=== PATIENT | male | born 1945 | race Caucasian/White ===

== ENCOUNTER 2023-02-04 15:50 | Inpatient (IN) | payer OTHER, SELFPAY ==
[2023-02-04] VITALS (24 sets, daily range): BP systolic 140–169; BP diastolic 96–127; PULSE 94–111; RESP 26–38; TEMP 36.2–36.6; O2SAT 72–99; BMI 23.5; BMI 24.7
--- NOTE | 2023-02-04 16:02 | CRLHL7_ITS ---
For Patients: As a result of the Century Cures Act, medical imaging exams and procedure reports are released immediately into your electronic medical record. You may view this report before your referring provider. If you have questions, please contact your health care provider. Indication: Chronic obstructive pulmonary disease exacerbation Technique: Chest 2 views Comparison: None Findings/Impression: Cardiovascular and mediastinum: Mild cardiomegaly with aortic tortuosity and atherosclerotic calcification. Lungs and pleural spaces: No pleural effusion or pneumothorax. Mild hyperinflation with flattening of the diaphragms suggesting underlying emphysema. Bilateral bronchial wall thickening with some interstitial prominence along the bronchi which can be seen in bronchitis or reactive airways disease. Scattered discoid atelectasis. Bones and soft tissues: No significant findings. Dictated by Sohail Moura MD @ 02/04/2023 4:46:26 PM (Electronically Signed)
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
--- NOTE | 2023-02-04 16:07 | ED.NURSE ---
patient was on the Oximask and pulse ox 100% at 5-6 liters. patient improved to decreased sob and placed on O2 at 2 liters via NC and noted the pulse ox 97%.
[2023-02-04 16:11] LABS: HCO3 VBG 33 mmol/L (21-28); PCO2 VBG 55 mmHG (40-50); PO2 VBG 50.9 mmHG (25-47); pH VBG 7.389 (7.32-7.43)
[2023-02-04 16:14] LABS: Basophils Absolute Auto 0.04 K/uL (0.00-0.30); Basophils Percent Auto 0.5 % (0.0-3.0); Eosinophils Absolute Auto 0.08 K/uL (0.00-0.50); Eosinophils Percent Auto 1.1 % (0.0-7.0); Hemoglobin* 15.1 gm/dL (13.5-17.5); Immature Granulocytes Abs Auto 0.01 K/uL (0.00-0.30); Immature Granulocytes Pct Auto 0.1 %; Lymphocytes Percent Auto 11.7 % (20-44); Mean Corpuscular HGB Conc 33 gm/dL (32-36); Mean Corpuscular Hemoglobin 32 pg (26-34); Mean Corpuscular Volume 98 fL (80-100); Monocytes Percent Auto 11.9 % (0.0-11.0); Neutrophils Percent Auto 74.7 % (42.0-72.0); Platelet Count* 181 K/uL (140-440); RDW Coefficient of Variation % 13.2 % (11.5-15.5); Red Blood Count 4.71 m/uL (4.30-5.90); White Blood Count* 7.37 K/uL (4.50-11.00)
[2023-02-04] MEDS: dexAMETHasone 4 MG/ML VIAL 10 MG IV (16:17)
[2023-02-04] MEDS: IPRAT-ALBUT 0.5-2.5 MG/3 ML NEB 1 NEB IH (16:17)
[2023-02-04 16:19] LABS: Troponin, Point-of-Care* 0.01 ng/ml (0.01-0.04)
[2023-02-04 16:20] LABS: Slide Review Reflex No
[2023-02-04 16:37] LABS: Chloride* 81 mmol/L (96-114)
[2023-02-04 16:38] LABS: Albumin* 4.1 g/dL (3.3-5.0); Potassium* 3.8 mmol/L (3.6-5.1)
[2023-02-04 16:41] LABS: Alanine Aminotransferase* 37 U/L (4-50); Alkaline Phosphatase* 89 U/L (40-150); Aspartate Amino Transferase* 59 U/L (12-35); Blood Urea Nitrogen* 17 mg/dL (7-30); Calcium* 8.3 mg/dL (8.4-10.6); Carbon Dioxide* 31 mmol/L (20-32); Creatinine* 0.5 mg/dL (0.5-1.5); Est. Creatinine Clearance* 58.76; Estimated Glomerular Filt Rate 106 ml/min; Glucose* 175 mg/dL (60-115); Total Protein* 7.3 g/dL (6.0-8.3)
[2023-02-04 16:52] LABS: Sodium* 122 mmol/L (135-149)
[2023-02-04 16:53] LABS: NT Pro B Type NatriureticPept* 3610 pg/mL
--- NOTE | 2023-02-04 18:04 | CRLHL7_ITS ---
For Patients: As a result of the Century Cures Act, medical imaging exams and procedure reports are released immediately into your electronic medical record. You may view this report before your referring provider. If you have questions, please contact your health care provider. INDICATION: Hypoxia. TECHNIQUE: CT chest PE was acquired with 79 cc Omnipaque 350 IV contrast. COMPARISON: December 26, 2015.. FINDINGS: Heart and vasculature: Contrast opacification of the pulmonary arterial tree is adequate. No sign of pulmonary embolism. Cardiomegaly with coronary artery calcifications. Severe ascending aortic aneurysm measuring 6.0 centimeters. Lungs and pleura: Pulmonary emphysema. Scattered atelectasis. No suspicious nodules or infiltrates. No pleural effusions, pleural thickening, or pneumothorax. Lymph nodes/mediastinum: No mediastinal, hilar, or axillary adenopathy. Chest wall: No masses. Upper abdomen: No acute or significant findings. Bones: Degenerative changes. IMPRESSION: No pulmonary embolism. Severe ascending aortic aneurysm measuring approximately 6.0 centimeters, increased in size since prior study. No CT evidence of rupture. Recommend vascular surgery consultation if not already obtained. Pulmonary emphysema. No focal consolidations. Cardiomegaly with coronary artery calcifications. Please note that all CT scans at this facility use dose modulation, iterative reconstruction, and/or weight-based dosing when appropriate to reduce radiation dose to as low as reasonably achievable. Dictated by Austin Ag MD @ 02/04/2023 7:05:33 PM (Electronically Signed)
--- NOTE | 2023-02-04 18:08 | ED.NURSE ---
did turn off 02. dr cook in to see. will observe . sats decreased to 87%. dr cook aware and 02 replaced at 2 l n/c. sats increased to 94%. rr 26. Laura aware of admission. is alert and grand daughter at bs. did want to eat. meal ordered.
--- NOTE | 2023-02-04 18:42 | ED.NURSE ---
is eating a cheese burger and potatoes. has a good appetite.
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
[2023-02-04 23:12] LABS: Hemoglobin A1C* 5.79 % (0-5.6)
[2023-02-04 23:29] LABS: Free T4 Free Thyroxine* 1.37 ng/dL (0.70-1.85)
[2023-02-04 23:52] LABS: Lab Add On Test New Spec Needed
[2023-02-05] VITALS (10 sets, daily range): BP systolic 123–152; BP diastolic 80–110; PULSE 77–99; RESP 18–26; TEMP 36.6–37.4; O2SAT 89–96
[2023-02-05] MEDS: DOXYCYCLINE HYCLATE 100 MG PO ×3 (00:03→20:26)
[2023-02-05] MEDS: NICOTINE 21 MG PATCH 1 PATCH TRANSDERMA ×2 (00:03→22:55)
[2023-02-05] MEDS: IPRAT-ALBUT 0.5-2.5 MG/3 ML NEB 1 NEB IH ×4 (00:04→22:56)
[2023-02-05] MEDS: FUROSEMIDE 10 MG/ML inj 40 MG IVP ×3 (00:04→17:25)
[2023-02-05 07:20] LABS: HCO3 VBG 40 mmol/L (21-28); PO2 VBG 37.1 mmHG (25-47); pH VBG 7.387 (7.32-7.43)
[2023-02-05 07:22] LABS: PCO2 VBG 67 mmHG (40-50)
[2023-02-05 08:01] LABS: Albumin* 4.3 g/dL (3.3-5.0); Chloride* 79 mmol/L (96-114)
[2023-02-05 08:02] LABS: Potassium* 4.2 mmol/L (3.6-5.1); Sodium* 126 mmol/L (135-149)
[2023-02-05 08:04] LABS: Alkaline Phosphatase* 71 U/L (40-150); Aspartate Amino Transferase* 61 U/L (12-35); Blood Urea Nitrogen* 18 mg/dL (7-30); Carbon Dioxide* 38 mmol/L (20-32); Creatinine* 0.5 mg/dL (0.5-1.5); Est. Creatinine Clearance* 58.76; Estimated Glomerular Filt Rate 106 ml/min; Total Protein* 7.7 g/dL (6.0-8.3)
[2023-02-05 08:05] LABS: Alanine Aminotransferase* 41 U/L (4-50); Calcium* 8.7 mg/dL (8.4-10.6); Glucose* 125 mg/dL (60-115)
[2023-02-05] MEDS: MULTIVITAMIN/MINERALS 1 TABLET 1 TAB PO (09:28)
[2023-02-05] MEDS: FOLIC ACID 1 MG TABLET PO (09:29)
[2023-02-05] MEDS: METOPROLOL TARTRATE 25 MG TABLET PO (09:29)
[2023-02-05] MEDS: ACETAMINOPHEN 325 MG TABLET 650 MG PO (09:29)
[2023-02-05] MEDS: SODIUM CHLORIDE 0.9 % (FLUSH) 10 ML SYRINGE 5 ML IVF ×3 (09:30→20:28)
[2023-02-05] MEDS: predniSONE 20 MG TABLET 60 MG PO (09:32)
[2023-02-05] MEDS: THIAMINE 100 MG TABLET 250 MG PO ×2 (10:02→20:25)
--- NOTE | 2023-02-05 11:03 | RESP.RT ---
Patient sitting up in chair, appears comfortable, SaO2 90% on NC 1 Lpm, pulse lip breathing 22/minute with prolong expiratory phase. BBS with fine crackles through out, expiratory wheeze noted, tight, diminished, more so in both bases. PEP with Aerobika, patient made weak/fair exhalation X 8 with some chest shake. Productive moist cough noted, swallowed secretions. Current smoker, rolls his own with pipe tobacco.
--- NOTE | 2023-02-05 13:14 | PC.NURSE ---
Tele NSR with BBB. Grossman by Dr. Piper. Pt has a good appetite, calm & cooperative with nsg interventions. Pt prefers to sit and sleep in his recliner d/to 6-9 months of worsening dyspnea. OT consult with Dulce Maria, RT consult with Ayan for aerobika inhaler. Dtr Katelynn is POA, she was undated at bedside by primary RN. Lupis from in to answer questions from patient and family. Plan echocardiogram late this afternoon @ approximately 2pm. Oxygen sats maintained at rest on 1L/NC. Sats fall immediately with minimal exertion to 77-82%. Nursing will monitor for worsening sx of hypoxia. Duoneb given and pt coughing up clear sputum. Voiding adequate amts after lasix 40 mg given IV with am med pass. Low grade temp of 99.4, tylenol given prn for fever which also took care of his mild headache. Pt has a hard callus/wart on right medial heel. He states his right elbow is painful intermittently at home. Numbness in right hand for about [address] pt report[address] Piper notified of these health concerns by primary RN. Knee high solange hose applied to edematous bilateral LE. Consent for care and treatment signed by pt after his POA (dtr) read through the document. Continue plan of care. Report will be provided to oncoming shift RN.
--- NOTE | 2023-02-05 15:41 | PC.SOCIAL ---
Met with pt in pt's room. Pt's daughter was on the phone for conversation. Pt's daughter is asking for resources for meals. Provided information for [facility] in [facility] for foodshelf information and the senior nutrition program. Pt can get meals for no cost through the senior nutrition program. There are no other social work needs at this time. Provided social work contact information if there are any further questions/concerns. Social work will follow up as needed.
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
[2023-02-05] MEDS: BENZOCAINE/MENTHOL 1 EACH LOZENGE MUCOUS MEM ×2 (17:36→20:27)
[2023-02-05] MEDS: METOPROLOL TARTRATE 50 MG TABLET PO (20:26)
[2023-02-06] VITALS (11 sets, daily range): BP systolic 100–143; BP diastolic 68–87; PULSE 67–90; RESP 16–20; TEMP 36.6–37.2; O2SAT 88–96
[2023-02-06] MEDS: IPRAT-ALBUT 0.5-2.5 MG/3 ML NEB 1 NEB IH ×4 (05:16→22:46)
--- NOTE | 2023-02-06 06:17 | PC.NURSE ---
[id number] Pt slept well during night, on 1 LPM NC to maintain sats >88%, Pt does desat to upper 70's with ambulation and takes approx 3-5 minutes to recover. denies feeling lightheaded or dizzy while ambulation.
[2023-02-06 07:05] LABS: HCO3 VBG 47 mmol/L (21-28); PO2 VBG 22.7 mmHG (25-47); pH VBG 7.318 (7.32-7.43)
[2023-02-06 07:09] LABS: PCO2 VBG 91 mmHG (40-50)
[2023-02-06 07:11] LABS: Basophils Absolute Auto 0.01 K/uL (0.00-0.30); Basophils Percent Auto 0.1 % (0.0-3.0); Eosinophils Absolute Auto 0.04 K/uL (0.00-0.50); Eosinophils Percent Auto 0.5 % (0.0-7.0); Hematocrit 45.8 % (37.0-53.0); Hemoglobin* 14.7 gm/dL (13.5-17.5); Immature Granulocytes Abs Auto 0.02 K/uL (0.00-0.30); Immature Granulocytes Pct Auto 0.3 %; Lymphocytes Percent Auto 17.5 % (20-44); Mean Corpuscular HGB Conc 32 gm/dL (32-36); Mean Corpuscular Hemoglobin 33 pg (26-34); Mean Corpuscular Volume 102 fL (80-100); Monocytes Percent Auto 17.6 % (0.0-11.0); Neutrophils Absolute Auto 4.83 K/uL (1.7-7.0); Platelet Count* 189 K/uL (140-440); RDW Coefficient of Variation % 13.3 % (11.5-15.5); Red Blood Count 4.49 m/uL (4.30-5.90); White Blood Count* 7.55 K/uL (4.50-11.00)
[2023-02-06 07:27] LABS: Slide Review Reflex No
[2023-02-06 07:28] LABS: Albumin* 3.8 g/dL (3.3-5.0)
[2023-02-06 07:29] LABS: Chloride* 79 mmol/L (96-114); Potassium* 3.6 mmol/L (3.6-5.1); Sodium* 130 mmol/L (135-149)
[2023-02-06 07:31] LABS: Aspartate Amino Transferase* 51 U/L (12-35); Bilirubin Total* 0.7 mg/dL (0.1-1.5); Creatinine* 0.6 mg/dL (0.5-1.5); Est. Creatinine Clearance* 58.76; Estimated Glomerular Filt Rate 100 ml/min; Total Protein* 6.8 g/dL (6.0-8.3)
[2023-02-06 07:32] LABS: Alanine Aminotransferase* 39 U/L (4-50); Alkaline Phosphatase* 79 U/L (40-150); Blood Urea Nitrogen* 25 mg/dL (7-30); Calcium* 8.6 mg/dL (8.4-10.6); Glucose* 77 mg/dL (60-115)
[2023-02-06 07:58] LABS: Carbon Dioxide* 45 mmol/L (20-32)
[2023-02-06] MEDS: FUROSEMIDE 10 MG/ML inj 40 MG IVP ×2 (09:25→15:37)
[2023-02-06] MEDS: ACETAMINOPHEN 325 MG TABLET 650 MG PO (09:26)
[2023-02-06] MEDS: FOLIC ACID 1 MG TABLET PO (09:28)
[2023-02-06] MEDS: DOXYCYCLINE HYCLATE 100 MG PO ×2 (09:28→20:31)
[2023-02-06] MEDS: predniSONE 20 MG TABLET 60 MG PO (09:28)
[2023-02-06] MEDS: THIAMINE 100 MG TABLET 250 MG PO ×2 (09:29→20:32)
[2023-02-06] MEDS: METOPROLOL TARTRATE 50 MG TABLET PO ×2 (09:29→20:32)
[2023-02-06] MEDS: MULTIVITAMIN/MINERALS 1 TABLET 1 TAB PO (09:29)
[2023-02-06] MEDS: SODIUM CHLORIDE 0.9 % (FLUSH) 10 ML SYRINGE 5 ML IVF ×2 (09:30→20:36)
[2023-02-06] MEDS: BENZOCAINE/MENTHOL 1 EACH LOZENGE MUCOUS MEM ×2 (11:24→15:37)
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
[2023-02-06 13:36] LABS: HCO3 VBG 46 mmol/L (21-28); PO2 VBG 21.5 mmHG (25-47); pH VBG 7.383 (7.32-7.43)
[2023-02-06 13:43] LABS: PCO2 VBG 77 mmHG (40-50)
--- NOTE | 2023-02-06 16:00 | PC.NURSE ---
Please see eMar for meds provided on day shift. One dose of prn tylenol given for right elbow discomfort. Pt's C02 was critically high this am at 91, Dr. Piper aware and pt's oxygen tapered to 0.5L/NC. Follow up C02 remains critical, however it is trending down to 77. Dr. Piper did a procedure to remove plantars wart on medial right heel, w/lidocaine utilized. Hospitalist also trimmed pt toenails at bedside this afternoon. Eval by PT and OT. Continue POC. Report to oncoming shift RNS Monik and Aleksandra.
[2023-02-06 16:15] LABS: Urine Osmolality 314 mOsm/kg (50-800)
[2023-02-06] MEDS: DOCUSATE SODIUM 100 MG CAPSULE PO (18:50)
[2023-02-06] MEDS: ENOXAPARIN 40 MG/0.4 ML INJ SUBCUT (20:30)
[2023-02-06] MEDS: HYDROCORTISONE 2.5% CREAM 1 APPLIC TOPICAL (20:33)
[2023-02-06 21:15] LABS: Hours Collected Not Provided hr; Total Volume Not Provided mL
--- NOTE | 2023-02-06 22:13 | PC.NURSE ---
End of shift... VS on 0.5 L NC. O2 stats remain at 88-89% consistently. Bilateral lungs anterior/ posterior upon auscultation inspiratory and expiatory wheezing present. SOB on exertion. He destats into upper 70's/ low 80s when he is standing up and moving around. The pt still reports numbness in his right hand and a tingling sensation in his R elbow. No pain reported throughout the shift. BLE TEDS on removed for 1hr this shift. 3+ pitting edema present in both feet. He stands up and voids in the urinal. Pt has significant amount of edema surrounding glans penis, per Feliz hydrocortisone was applied this evening. He ate 100% of dinner. Pt is most comfortable upright in the chair due to his breathing. He is sleeping in the chair. Scheduled neb given @8161.
[2023-02-06 23:24] LABS: Rapid Plasma Reagin (RPR) Non Reactive (Non Reactive)
[2023-02-07] VITALS (8 sets, daily range): BP systolic 108–155; BP diastolic 76–96; PULSE 81–94; RESP 20–22; TEMP 36.7–36.8; O2SAT 84–90
[2023-02-07] MEDS: IPRAT-ALBUT 0.5-2.5 MG/3 ML NEB 1 NEB IH ×3 (04:47→17:16)
[2023-02-07] MEDS: BENZOCAINE/MENTHOL 1 EACH LOZENGE MUCOUS MEM ×3 (04:47→19:21)
--- NOTE | 2023-02-07 05:25 | PC.NURSE ---
0185-2385: A&Ox3 and pleasant. SBA w/walker. Mild SOB w/movement. 0.5 Lt NC to maintain sats 88-90%. Lg. continent BM during shift. Lozenge administered for throat discomfort d/t chronic productive cough. Eating and voiding.
[2023-02-07 06:47] LABS: Basophils Absolute Auto 0.01 K/uL (0.00-0.30); Basophils Percent Auto 0.1 % (0.0-3.0); Eosinophils Absolute Auto 0.04 K/uL (0.00-0.50); Eosinophils Percent Auto 0.5 % (0.0-7.0); Hematocrit 49.3 % (37.0-53.0); Hemoglobin* 15.3 gm/dL (13.5-17.5); Immature Granulocytes Abs Auto 0.03 K/uL (0.00-0.30); Immature Granulocytes Pct Auto 0.4 %; Lymphocytes Percent Auto 17.3 % (20-44); Mean Corpuscular HGB Conc 31 gm/dL (32-36); Mean Corpuscular Hemoglobin 32 pg (26-34); Mean Corpuscular Volume 103 fL (80-100); Monocytes Percent Auto 15.1 % (0.0-11.0); Neutrophils Absolute Auto 5.63 K/uL (1.7-7.0); Neutrophils Percent Auto 66.6 % (42.0-72.0); Platelet Count* 212 K/uL (140-440); RDW Coefficient of Variation % 13.4 % (11.5-15.5); Red Blood Count 4.79 m/uL (4.30-5.90); White Blood Count* 8.45 K/uL (4.50-11.00)
[2023-02-07 06:56] LABS: Slide Review Reflex No
[2023-02-07 07:11] LABS: HCO3 VBG 47 mmol/L (21-28); PO2 VBG 30.6 mmHG (25-47); pH VBG 7.329 (7.32-7.43)
[2023-02-07 07:13] LABS: Albumin* 3.9 g/dL (3.3-5.0); Chloride* 79 mmol/L (96-114); Sodium* 132 mmol/L (135-149)
[2023-02-07 07:14] LABS: PCO2 VBG 89 mmHG (40-50); Potassium* 3.6 mmol/L (3.6-5.1)
[2023-02-07 07:16] LABS: Alkaline Phosphatase* 111 U/L (40-150); Aspartate Amino Transferase* 51 U/L (12-35); Bilirubin Total* 0.6 mg/dL (0.1-1.5); Blood Urea Nitrogen* 35 mg/dL (7-30); Creatinine* 0.6 mg/dL (0.5-1.5); Est. Creatinine Clearance* 58.76; Estimated Glomerular Filt Rate 100 ml/min; Total Protein* 6.9 g/dL (6.0-8.3)
[2023-02-07 07:17] LABS: Alanine Aminotransferase* 47 U/L (4-50); Calcium* 8.9 mg/dL (8.4-10.6); Glucose* 84 mg/dL (60-115)
[2023-02-07 07:26] LABS: Carbon Dioxide* 44 mmol/L (20-32)
[2023-02-07] MEDS: ACETAMINOPHEN 325 MG TABLET 650 MG PO (07:57)
[2023-02-07] MEDS: FUROSEMIDE 10 MG/ML inj 40 MG IVP ×2 (07:57→15:33)
[2023-02-07] MEDS: DOXYCYCLINE HYCLATE 100 MG PO (07:57)
[2023-02-07] MEDS: predniSONE 20 MG TABLET 60 MG PO (07:58)
[2023-02-07] MEDS: SODIUM CHLORIDE 0.9 % (FLUSH) 10 ML SYRINGE 5 ML IVF (08:01)
[2023-02-07] MEDS: HYDROCORTISONE 2.5% CREAM 1 APPLIC TOPICAL (09:18)
[2023-02-07] MEDS: THIAMINE 100 MG TABLET 250 MG PO (09:19)
[2023-02-07] MEDS: METOPROLOL TARTRATE 50 MG TABLET PO (09:19)
[2023-02-07] MEDS: FOLIC ACID 1 MG TABLET PO (09:19)
[2023-02-07] MEDS: NICOTINE 21 MG PATCH 1 PATCH TRANSDERMA (09:20)
[2023-02-07] MEDS: MULTIVITAMIN/MINERALS 1 TABLET 1 TAB PO (09:20)
--- NOTE | 2023-02-07 10:23 | RESP.3PART ---
3 Part Home O2 Testing Summary RT 3 Part Home O2 Testing Summary Start: 02/07/23 10:17 Freq: Status: Active Protocol: Document 02/07/23 10:17 JOSE (Rec: 02/07/23 10:21 JOSE [id number]) 3 Part Home O2 Testing Summary The following is a summary of the 3 Part O2 Testing Evaluation Date/Time of Testing Date 02/07/23 Time 10:15 Insurance Policy Number [id number] Step 1 SAT on room air at rest (%) 86 Step 2 SAT on room air while exercising (%) 84 Step 3 SAT on supplemental O2 while exercising 90 (%) Liters of supplemental O2 needed while 2 exercising (L) O2 Delivery O2 delivered via Nasal Cannula Comments Comments Patient SAT on room air at rest is 86% and requires 0.5L NC to keep SAT at 90% while at rest. Patient SAT on room air with activity is 84% and requires 1L NC to keep SAT 90% with activity.
--- NOTE | 2023-02-07 10:26 | W.PM.HOT ---
Acute Home Oxygen Therapy Acute Home Oxygen Therapy Provider Note Provider Note: Patient was admitted on 02/04/23 at 23:11 and will be discharging on 02/07/2023. Patient is desaturating with SATs of 86% on room air due to COPD. Alternative therapies have been attempted and have not been successful in maintaining the patient's saturation level above 88%. Supplemental O2 is required. This patient is mobile within the home and requires portability.
--- NOTE | 2023-02-07 13:35 | PC.NURSE ---
1100 patient called nursing into room and c/o SOB, this was also time for scheduled duo neb, pt reports symptoms resolved. RT in to assess patient and working to set up home 02. pt requires 0.5L per NC. c02 retainer, typically higher in AM d/t retaining over night. PH ok. R arm tingling/numbness - addressed in ED and pt has questional pinched nerve. CMS good to R fingers/arm, good movement, good pulses. no concerns noted.
--- NOTE | 2023-02-07 14:51 | PM.DS1 ---
DS: Providers Provider Date Seen: 02/07/23 Date of admission: 02/04/23 23:11 Primary care physician: Not a Local Provider Admitting Clinician: Taty Breaux MD Consults: 02/04/23 22:31 Consult to Physical Therapy [CONS] Routine Comment: Reason(s) for PT Consult:: Evaluate and Treat Any Restrictions?:: No Restrictions Consult to Respiratory Therapy [CONS] Routine Comment: Reason(s) for RT Consult:: New COPD/Asthma Diag Consult to Food Service Team Member [CONS] Routine Comment: Reason for Consult:: Social Service Consult 02/04/23 22:34 Consult to Occupational Therapy [CONS] Routine Comment: Reason(s) for OT Consult:: Evaluate and Treat Any Restrictions?:: No Restrictions 02/05/23 07:48 Consult to Food Service Team Member [CONS] Routine Comment: Reason for Consult:: Social Service Consult Attending Physician on discharge: Taty Breaux MD DS: Diagnosis Discharge Diagnosis (1) Acute hypoxemic respiratory failure: Status: Acute Problem details: - primarily 2/2 presumed COPD exacerbation; no evidence of acute infectious process on admission imaging - on steroids, antibiotics, nebs, supplemental oxygen - significant CO2 retention, decreasing oxygen for goal O2 saturation of 88% (2) COPD exacerbation: Status: Acute Problem details: - Oxygen supplementation, wean to keep O2 sats no greater than 88% as he is already hypercapnic although compensated - steroids and doxycycline (02/04), will d/c on full course of Doxycycline + Prednisone taper - RT following (3) Prediabetes: Status: Acute Problem details: - HgbA1C 5.7% (4) Aneurysm of ascending aorta: Status: Chronic Problem details: - 02/04/2023 chest CTA: 6 cm, 5.9cm on TTE - reviewed with Cardiology after TTE results confirmed; needs close outpatient f/u for this - added Metoprolol for BP control during stay (5) Foreskin swelling: Status: Acute Problem details: - no evidence of balanitis or UTI - trial of hydrocortisone, improved during stay (6) Plantar wart of right foot: Status: Acute Problem details: - pared down 02/06 without difficulty (7) Hyponatremia: Status: Acute Problem details: - cause uncertain (no evidence of malignancy on chest CT) - improved during stay on mild fluid restriction (122 --> 132 on discharge) (8) Tobacco use: Status: Acute Problem details: - quit 01/28, on replacement (9) 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 During stay, it appeared that he has a new diagnosis of COPD (did not have formals PFTs, + emphysema on imaging, R heart disease on TTE, and hypercarbia); also noted to have a 6cm ascending aortic aneurysm on CTA, confirmed with TTE. Patient did not have any chest pain during stay. Metoprolol was initiated for blood pressure control. Cardiology consulted by phone, recommend close outpatient follow-up to discuss repair. Patient's breathing improved on low-dose supplemental oxygen, noted to be hypercarbic in the mornings and improved in the afternoon. He was followed by respiratory therapy and started on doxycycline and steroids, in addition to nebs. Other notable findings during stay with details above. We discussed with patient and family that his severe pulmonary disease would make him a candidate for hospice; however, he would like to see his new PCP (had a 1st appointment scheduled earlier this week, but clinic lost power) and Cardiology to discuss whether not he would want to pursue surgical repair of ascending aortic aneurysm. Time spent discussing smoking cessation with patient: 3 to 10 minutes Status at Discharge Functional status at discharge: independent ambulation Time Spent with Patient Time attestation: Total time spent providing and/or coordinating discharge services: Time spent: Greater than 30 minutes Specific discharge activities: Medication reconciliation, patient education, care coordination, supplemental oxygen Exam Narrative: Exam Narrative: GEN: Alert and pleasant, wearing supplemental oxygen HEENT: EOMIs bilaterally, no scleral icterus CV: RRR, No concerning murmurs R: Decreased breath sounds throughout, bibasilar expiratory wheezing Ext: wwp, trace B edema Neuro: Nonfocal Psych: Appropriate Const: Vital Signs, click to edit/add: Vital Signs - 24 hr 02/06/23 15:45 02/06/23 15:46 02/06/23 16:21 Temperature 98.2 F Pulse Rate 77 Pulse Rate [Left P ulse Oximeter] 68 Respiratory Rate 18 18 Blood Pressure [Le ft Arm] 100/78 Pulse Oximetry 89 89 Oxygen Delivery Me thod Nasal Cannula Nasal Cannula Oxygen Flow Rate 0.5 0.5 02/06/23 18:57 02/06/23 19:02 02/06/23 23:58 Temperature 98.9 F 98.2 F Pulse Rate Pulse Rate [Left P ulse Oximeter] 90 71 Respiratory Rate 18 16 16 Blood Pressure [Le ft Arm] 111/68 143/87 H Pulse Oximetry 88 96 92 Oxygen Delivery Me thod Nasal Cannula Room Air Nasal Cannula Oxygen Flow Rate 0.5 0.5 02/07/23 00:00 02/07/23 00:32 02/07/23 03:00 Temperature 98.1 F 98.3 F Pulse Rate 88 Pulse Rate [Left P ulse Oximeter] 94 83 Respiratory Rate 22 20 Blood Pressure [Le ft Arm] 139/96 H 115/89 Pulse Oximetry 89 89 Oxygen Delivery Me thod Nasal Cannula Nasal Cannula Oxygen Flow Rate 0.5 0.5 02/07/23 07:00 02/07/23 07:00 02/07/23 07:00 Temperature Pulse Rate 94 Pulse Rate [Left P ulse Oximeter] 92 Respiratory Rate 20 20 Blood Pressure [Le ft Arm] Pulse Oximetry 89 Oxygen Delivery Me thod Nasal Cannula Oxygen Flow Rate 0.5 02/07/23 07:00 02/07/23 07:00 02/07/23 08:00 Temperature 98.3 F 98.3 F Pulse Rate Pulse Rate [Left P ulse Oximeter] 92 92 Respiratory Rate 20 20 Blood Pressure [Le ft Arm] 108/78 108/78 Pulse Oximetry 89 89 89 Oxygen Delivery Me thod Nasal Cannula Nasal Cannula Oxygen Flow Rate 0.5 0.5 02/07/23 11:00 Temperature 98.2 F Pulse Rate Pulse Rate [Left P ulse Oximeter] 81 Respiratory Rate 20 Blood Pressure [Le ft Arm] 140/76 H Pulse Oximetry 89 Oxygen Delivery Me thod Nasal Cannula Oxygen Flow Rate 0.5 DS: Data Data Completed and Pending Labs on day of discharge: Labs from last 24 hours 02/07/23 02/05/23 02/05/23 06:18 07:09 01:03 WBC 8.45 RBC 4.79 Hgb 15.3 Hct 49.3 MCV 103 H MCH 32 MCHC 31 L RDW Coeff of Shelli 13.4 Plt Count 212 Neut % (Auto) 66.6 Lymph % (Auto) 17.3 L [place] % (Auto) 15.1 H Eos % (Auto) 0.5 Baso % (Auto) 0.1 Neut # (Auto) 5.63 Lymph # (Auto) 1.50 [place] # (Auto) 1.30 H Eos # (Auto) 0.04 Baso # (Auto) 0.01 Abs Immat Gran (auto) 0.03 Imm/Tot Granulo (auto) 0.4 VBG pH 7.329 VBG pCO2 89 H* VBG pO2 30.6 VBG HCO3 47 H Sodium 132 L Potassium 3.6 Chloride 79 L Carbon Dioxide 44 H* BUN 35 H Creatinine 0.6 Estimated Creat Clear 58.76 Estimated GFR 100 Glucose 84 Serum Osmolality 262 L Calcium 8.9 Total Bilirubin 0.6 AST 51 H ALT 47 Alkaline Phosphatase 111 Total Protein 6.9 Albumin 3.9 Ur Random Osmolality 314 Ur Creatinine per Vol 29 Ur Creatinine 24 Hour Not Applicable U Collection Duration Not Provided Urine Total Volume Not Provided Ur Sodium per Vol 30 Ur Sodium mmol/Day Not Applicable RPR Screen 02/04/23 07:09 WBC RBC Hgb Hct MCV MCH MCHC RDW Coeff of Shelli Plt Count Neut % (Auto) Lymph % (Auto) [place] % (Auto) Eos % (Auto) Baso % (Auto) Neut # (Auto) Lymph # (Auto) [place] # (Auto) Eos # (Auto) Baso # (Auto) Abs Immat Gran (auto) Imm/Tot Granulo (auto) VBG pH VBG pCO2 VBG pO2 VBG HCO3 Sodium Potassium Chloride Carbon Dioxide BUN Creatinine Estimated Creat Clear Estimated GFR Glucose Serum Osmolality Calcium Total Bilirubin AST ALT Alkaline Phosphatase Total Protein Albumin Ur Random Osmolality Ur Creatinine per Vol Ur Creatinine 24 Hour U Collection Duration Urine Total Volume Ur Sodium per Vol Ur Sodium mmol/Day RPR Screen Non Reactive Discharge Plan Discharge Disposition: Home, Self-Care Date of Admission: 02/04/23 23:11 Attending Provider on Discharge: Billie Piper Primary Care Provider: Provider,Not a Local Condition: Improved Anticipated Discharge Date/Time: 02/07/23 11:15 Discharge Medications: New fluticasone furoate-vilanterol [Breo Ellipta] 200-25 mcg/dose blister with device 1 inh inhalation DAILY Qty: 60 2RF ipratropium-albuterol 0.5 mg-3 mg(2.5 mg base)/3 mL Solution For Nebulization 3 ml inhalation Q6H PRNQty: 90 0RF prednisone 20 mg Tablet 20 mg PO DAILYWM Qty: 17 0RF Rx Instructions: 2 tabs daily for 5 days, then 1 tab daily for 7 days, then stop metoprolol tartrate 50 mg Tablet 50 mg PO BID 30 Days Qty: 60 0RF nicotine 21 mg/24 hr Patch 24 Hour 1 patch transdermal Q24H Qty: 28 0RF hydrocortisone 2.5 % Cream 1 applic topical BID Qty: 30 0RF Rx Instructions: as needed for skin swelling doxycycline hyclate 100 mg Tablet 100 mg PO BID 5 Days Qty: 10 0RF (DME) nebulizer and compressor Device See Rx Instructions .Route Qty: 1 0RF Rx Instructions: As directed (DME) Home Oxygen Misc See Rx Instructions .Route Qty: 1 12RF Rx Instructions: As directed Continued acetaminophen 500 mg capsule 500 mg PO Q6H PRN Discontinued ibuprofen 200 mg capsule 200 mg PO Q6-8H PRN Discharge Orders: Discharge Order (Routine); Ordered 02/07/23 Ordered By: Billie Piper Additional Instructions: You have new medications waiting for you at pharmacy: 1. Doxycycline: this is an antibiotic for your COPD 2. Prednisone (steroid for COPD) - take this in decreasing doses over the next 1-2 weeks 3. Nebulizer machines and nebs - as needed for shortness of breath or coughing 4. Breo - this is an inhaler that you take EVERY DAY to keep your COPD under control 5. Metoprolol - this is a blood pressure medication that you'll take twice/day to help keep your blood pressure on the lower side until you see Cardiology 6. Steroid cream - as needed for skin swelling 7. Nicotine gum and patch - good idea to stay off cigarettes on discharge. If you need anything for pain, Tylenol is better than Ibuprofen (Ibuprofen can bother your gut when you're on Prednisone). Good idea to cut down on alcohol use - it can be hard on your heart. See Dr. Feng as scheduled for a followup appointment; he can help with referrals to Cardiology and Pulmonology. Activity Level: Activity as Tolerated and No strenuous activity Discharge Diet: Regular Follow Up Appointments: Provider,Not a Local [Primary Care Provider] - Maxi Feng MD [Referring] - (needs a f/u with Dr. Feng early next week (new patient, hospital d/c followup, discuss Cardiology and Pulmonology referral). He works at the [employer] [facility] [employer] but their phone number isn't working so please call the [facility] at [phone]) Forms: [employer] Info Instructions
--- NOTE | 2023-02-07 17:43 | PC.NURSE ---
Discharge: Patient sitting up in chair, denies SOB. On 0.5L O2 with saturations 88-90%. Discharge instructions given verbally and in-print. All questions answered. IV discontinued with catheter intact. He currently awaits daughter for ride home. He will be wheeled from unit with all belongings, including new oxygen concentrator, upon her arrival. He is ambulatory.
--- NOTE | 2023-02-07 20:07 | PC.NURSE ---
193- Patient's daughter arrives. Patient is wheeled from unit with all belongings.
== END 2023-02-07 19:30 | disposition home or self-care (01) | DRG 189 ==
LOC: ED 19:57 → MEDSURG 19:58
PROVIDERS: Family Medicine; Admitting Provider Family Medicine; Emergency Provider Student in an Organized Health Care Education/Training Program; Visit Provider Family Medicine
DX: J96.01 Acute respiratory failure with hypoxia (principal); J44.1 Chronic obstructive pulmonary disease with (acute) exacerbation; E87.1 Hypo-osmolality and hyponatremia; I50.20 Unspecified systolic (congestive) heart failure; J96.02 Acute respiratory failure with hypercapnia; F17.210 Nicotine dependence, cigarettes, uncomplicated; I71.21 Aneurysm of the ascending aorta, without rupture; R60.0 Localized edema; R73.03 Prediabetes; G47.33 Obstructive sleep apnea (adult) (pediatric); N48.89 Other specified disorders of penis; B07.0 Plantar wart
CPT/HCPCS: 36415; 71046; 71260; 80053; 82803; 83036; 83880; 83930; 83935; 84300; 84439; 84443; 84484; 85025; 85379; 86592; 93005; 93306; 94640; 94664; 94761; 97110; 97116; 97161; 97165; 97530; 97535; 99283; 99285; A9153; A9270; J1100; J1650; J1940; J7512; Q9967; S4990